=== PATIENT | female | born 2000 | race Caucasian/White ===

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

== ENCOUNTER 2022-06-16 12:43 | Emergency (ER) | payer OTHER ==
[2022-06-16 12:48] VITALS: BP 105/61; PULSE 103; RESP 18; TEMP 97; BMI 25.4
[2022-06-16] MEDS ORDERED: IBUPROFEN 600 MG TABLET (FP) PO ONE ×2 (13:24→13:27)
[2022-06-16] MEDS ORDERED: LIDOCAINE HCL/PF 1% SDV 5ML VIAL ONE (13:48)
== END 2022-06-16 15:04 | disposition home or self-care (01) ==
LOC: JERFT 12:43
PROC: 3E0T3BZ Introduction of Anesthetic Agent into Peripheral Nerves and Plexi, Percutaneous Approach (ICD-10-PCS; principal; 2022-06-16)
DX: S92.331A Displaced fracture of third metatarsal bone, right foot, initial encounter for closed fracture (principal); S92.341A Displaced fracture of fourth metatarsal bone, right foot, initial encounter for closed fracture; S50.312A Abrasion of left elbow, initial encounter; S50.812A Abrasion of left forearm, initial encounter; M79.671 Pain in right foot; S20.419A Abrasion of unspecified back wall of thorax, initial encounter; S30.810A Abrasion of lower back and pelvis, initial encounter; M54.9 Dorsalgia, unspecified; M79.644 Pain in right finger(s); W01.0XXA Fall on same level from slipping, tripping and stumbling without subsequent striking against object, initial encounter; Y93.01 Activity, walking, marching and hiking; Y92.008 Other place in unspecified non-institutional (private) residence as the place of occurrence of the external cause
CPT/HCPCS: 64450; 73140-TC-RT-FY; 73630-TC-RT-FY; 99284-25

== ENCOUNTER 2022-06-19 15:34 | Emergency (ER) | payer OTHER ==
[2022-06-19 15:49] VITALS: BP 103/63; PULSE 90; RESP 18; TEMP 98; BMI 24.7
== END 2022-06-19 17:34 | disposition home or self-care (01) ==
LOC: JERFT 15:34
DX: M79.644 Pain in right finger(s) (principal); R22.31 Localized swelling, mass and lump, right upper limb; S92.334D Nondisplaced fracture of third metatarsal bone, right foot, subsequent encounter for fracture with routine healing; S92.344D Nondisplaced fracture of fourth metatarsal bone, right foot, subsequent encounter for fracture with routine healing; W10.8XXD Fall (on) (from) other stairs and steps, subsequent encounter
CPT/HCPCS: 99283-25